=== PATIENT | female | born 1955 | race Two or more races ===

== ENCOUNTER 2020-11-27 12:41 | Inpatient (IN) | payer MEDICARE ==
[~2020-11-27] VITALS: Ht 160 cm; Wt 117.0 kg
[2020-11-27 13:20] LABS: BASOPHILS # (AUTO) 0.1 /CMM (0.0-0.2); LYMPHOCYTES # (AUTO) 0.7 /CMM (0.8-4.8); WHITE BLOOD COUNT (AUTO) 13.3 K/uL (4.3-11.0)
[2020-11-27 13:22] LABS: BASOPHILS % (AUTO) 0.9 % (0.0-2.0); HEMATOCRIT 44 % (33-45); HEMOGLOBIN 13.8 g/dL (11.5-14.8); LYMPHOCYTES % (AUTO) 5.5 % (20.0-44.0); MEAN CORPUSCULAR HGB CONC 32 g/dl (31.0-36.0); MEAN CORPUSCULAR VOLUME 90 fL (82-100); MONOCYTES # (AUTO) 0.9 /CMM (0.1-1.30); MONOCYTES % (AUTO) 6.7 % (2.0-12.0); NEUTROPHILS # (AUTO) 11.5 /CMM (1.8-8.9); NEUTROPHILS % (AUTO) 86.9 % (43.0-81.0); PLATELET COUNT (AUTO) 439 /CMM (150-450); RED BLOOD CELL COUNT(AUTO) 4.82 MIL/uL (4.0-5.2)
--- NOTE | 2020-11-27 13:22 | NUR ---
BHUPINDER FROM HOME TO ER BED 8. AAOX4. IN MOD RESP DISTRESS, SOB, DYSPNEI AND TACYPNEIC. BROUGHT IN FOR SOB WORSENING IN THE PAST 2 DAYS WORST TODAY. PER PT, SHE HAS BEEN HAVING THIS SOB FOR THE PAST MONTH. SHE REPORTS THAT WHEN THIS HAPPENS IT MEANS THAT SHE HAVE FLUIDS IN HER LUNGS, RECIEVED 2 ROUND OF THORACENTESIS. PT ALSO REPORTS THAT SHE HAVE AN ADVANCED STAGE LUNG CANCER. PT IS NOTED DYSPNEIC, SATTING 80-83% VIA NC @ 4LPM, SATTING AT 90% WHEN PLACED ON O2 VIA SIMPLE MASK PT IS ALSO NOTED TACHYCARDIC @ 138. BILAT LOWER EXT EDEMA +3 NOTED WELL. WAS AT TH BEDSIDE FOR EVAL. ORDERS RECEIVED, NOTED AND CARRIED OUT. IV LINE ESTABLISHED ON RFA 20G, BLOOD DRAWNA NDGIVEN TO PHLEB. PT ON MONITOR.
[2020-11-27] MEDS ORDERED: MAGN400T26 PO (13:34)
[2020-11-27] MEDS ORDERED: HYDR-4077 PO (13:34)
[2020-11-27] MEDS ORDERED: FOLI0.4T6 PO (13:34)
[2020-11-27] MEDS ORDERED: METO50TA16 PO (13:34)
[2020-11-27] MEDS ORDERED: BUDE10.26 INH (13:34)
[2020-11-27] MEDS ORDERED: [UNRECOGNIZED DRUG - REMARK] IV (13:34)
[2020-11-27] MEDS ORDERED: AMLO-212 PO (13:34)
[2020-11-27 13:43] LABS: ALANINE AMINOTRANSFERASE 95 U/L (12-78); ALBUMIN 2.8 g/dL (3.4-5.0); ALKALINE PHOSPHATASE 355 U/L (46-116); ASPARTATE AMINOTRANSFERASE 79 U/L (15-37); B-TYPE NATRIURETIC PEPTIDE 2476 PG/ML (0-125); BILIRUBIN,DIRECT 0.2 mg/dL (0.0-0.2); BILIRUBIN,TOTAL 0.4 mg/dL (0.2-1.0); CALCIUM, SERUM 11.3 mg/dL (8.5-10.1); CARBON DIOXIDE 25 mmol/L (21-32); CHLORIDE 108 mmol/L (98-107); CREATININE 0.9 mg/dL (0.6-1.3); GLUCOSE 182 mg/dL (74-106); POTASSIUM 3.6 mmol/L (3.5-5.1); SODIUM SERUM 144 mmol/L (136-145); TOTAL PROTEIN, SERUM 7.2 g/dL (6.4-8.2); UREA NITROGEN, BLOOD 18 mg/dL (7-18)
[2020-11-27 13:46] LABS: D-DIMER 12.1 mg/L(FEU (0.17-0.50)
[2020-11-27] MEDS ORDERED: IV NS 0.9% 1,000 ML BAG IV ONE (14:00)
[2020-11-27] MEDS ORDERED: LEVOFLOXACIN 750 MG /D5W 150ML 150 ML IV ONE ×2 (14:00→14:37)
[2020-11-27] MEDS ORDERED: CT SWABBABLE VALVE TRANS SET 1 EA INFUS.SET MC ONE (14:07)
[2020-11-27] MEDS ORDERED: IOHEXOL-350 100 ML VIAL IV ONE (14:07)
[2020-11-27] MEDS ORDERED: IV NS 0.9% 250 ML IV ONE (14:07)
--- NOTE | 2020-11-27 14:23 | NUR ---
PT REFUSED TO HAVE THE PULMONARY AGIOGRAM DESPITE EXPLAINING THE IMPORTANCE OF THE PROCEDURE. PT VERBALIZES THAT IT IS HARD FOR HER TO LIE DOWN FOR THE TEST. MADE AWARE.
[2020-11-27 14:28] LABS: ABG BASE EXCESS 0.5 mmol/L; ABG OXYGEN SATURATION 92.1 % (92.0-98.5); ABG PCO2 46.4 mmHg (35.0-45.0); ABG PH 7.371 (7.350-7.450); ABG PO2 70.6 mmHg (75.0-100.0); AaDO2 306.2 mmHg; COHb 0.3 % (0.5-1.5); MetHb 0.4 % (0.0-1.5); O2Hb 91.5 % (94.0-97.0); SITE, ABG Right Radial
[2020-11-27] MEDS ORDERED: ENOXAPARIN SODIUM 100 MG/ML DISP.SYRIN SQ ONE ×2 (14:30→15:00)
[2020-11-27] MEDS ORDERED: ASPIRIN 81 MG TAB.CHEW PO ONE (14:30)
--- NOTE | 2020-11-27 14:30 | NUR ---
consent signed by pt for theratupic ultrasound guided thoracentesis
--- NOTE | 2020-11-27 14:44 | NUR ---
LOVENOX AND ASA WILL BE GIVEN AFTER THORACENTESIS
--- NOTE | 2020-11-27 14:50 | NUR ---
DR. THAKKAR UPGRADED TO ICU.
--- NOTE | 2020-11-27 14:51 | NUR ---
received a call from the lab regarding covid 19 result "negative", notified.
--- NOTE | 2020-11-27 14:58 | NUR ---
THORACENTESIS DONE AT BEDSIDE BY INTERVENTIONAL RADIOLOGY, DR. LIPSCOMB. COLLECTED 500ML OF PLEURAL FLUIDS.
[2020-11-27] MEDS ORDERED: ACETAMINOPHEN 325 MG TABLET PO PRN (15:00)
[2020-11-27] MEDS ORDERED: MAGNESIUM HYDROXIDE 30 ML UDC PO PRN (15:00)
[2020-11-27] MEDS ORDERED: MAG HYDROX/AL HYDROX/SIMETH 30 ML UDC PO PRN (15:00)
[2020-11-27] MEDS ORDERED: ASPIRIN 81 MG TAB.CHEW ONE (15:00)
[2020-11-27] MEDS ORDERED: Z GUARD REMEDY 2 OZ OINT TP PRN (15:00)
[2020-11-27] MEDS ORDERED: MEROPENEM 500 MG in IV NS 0.9% 50 ML IV SCH (15:00)
[2020-11-27] MEDS ORDERED: ONDANSETRON HCL/PF 4 MG/2 ML VIAL IVP PRN (15:00)
--- NOTE | 2020-11-27 16:04 | NUR ---
REPORT GIVEN TO KIM OCONNELL FOR VERENA
--- NOTE | 2020-11-27 16:24 | NUR ---
PT TRANSPORTED TO [facility] WITH EMT AND RN AT BEDSIDE W/ ACLS PROTOCOL. NAD NOTED DURING TRANSPORT.
[2020-11-27] MEDS ORDERED: ENOXAPARIN SODIUM 100 MG/ML DISP.SYRIN SQ SCH (16:30)
--- NOTE | 2020-11-27 16:53 | NUR ---
RECEIVED REPORT FROM KIM JORGENSEN. PATIENT IN BED. PATIENT REPORTS SOB, ESPECIALLY ON EXERTION. PATIENT ALERT & ORIENTED X4. PATIENT ON SIMPLE MASK 10L OXYGEN, SATURATING WELL AT 95%. PATIENT ON [employer], ST NOTED WITH HEART RATE IN 110S. PATIENT RFA IV ACCESS INTACT, PATENT. WILL START SECOND IV LINE. PATIENT SAFETY MEASURES MAINTAINED. CALL LIGHT WITHIN REACH. WILL CONTINUE TO MONITOR. PATIENT VS 98.7 TEMP, 112 HR, 134/75 BP, 95% O2 SATURATION, 24 RR PATIENT CRITICAL VALUES TROPONIN 0.450, LACTIC ACID 2.[address] FORD. NO NEW ORDERS Addendum: 11/27/20 at 1654 by ANISH KIRKLAND RN RECEIVED REPORT FROM KIM HDZ. NOT KIM JORGENSEN
[2020-11-27] MEDS: FUROSEMIDE 40 MG/4 ML VIAL IV SCH (17:40)
[2020-11-27] MEDS: hydrALAZINE HCL 50 MG TABLET PO SCH (17:41)
[2020-11-27] MEDS: VANCOMYCIN 1.25 GM in IV D5W 250 ML IV SCH (17:42)
[2020-11-27] MEDS: MEROPENEM 1 G in IV NS 0.9% 100 ML IV SCH (17:44)
[2020-11-27 18:00] VITALS: BP 115/82
--- NOTE | 2020-11-27 18:30 | NUR ---
PATIENT IN BED. PATIENT REPORTS SOB, ESPECIALLY ON EXERTION. PATIENT ALERT & ORIENTED X4. PATIENT ON SIMPLE MASK 10L OXYGEN, SATURATING WELL AT 95%. PATIENT ON MEASUREMENT TECHNICIAN, ST NOTED WITH HEART RATE IN 110S. PATIENT RFA IV ACCESS INTACT, PATENT. WILL START SECOND IV LINE. PATIENT SAFETY MEASURES MAINTAINED. CALL LIGHT WITHIN REACH. WILL ENDORSE PLAN OF CARE TO ONCOMING SHIFT
[2020-11-27 19:03] VITALS: BP 126/63
--- NOTE | 2020-11-27 19:10 | NUR ---
ADHESIVE BANDAGE MACHINE OPERATOR NOTE RECEIVED PATIENT SITTING IN BED ALERT ORIENTED X4 VERBALLY RESPONSIVE ON 10L OXYGEN REGULAR MASK, O2:90% IV SITE IS ON RIGHT AC INTACT PATENT AMBULATORY WITH ASSIST,CONTINENT BOWEL/BLADDER, USING BED SIDE COMMODE,SAFETY MEASURE IMPLEMENT,CALL LIGHT WITHIN REACH,BED IN LOW POSITION AND LOCKED CONTINUE TO MONITOR.
--- NOTE | 2020-11-27 19:11 | NUR ---
CLIENT SERVICE COORDINATOR NOTE PT IS ON 11L OXYGEN VIA MASK O2:90 CONTINUE TO MONITOR.
[2020-11-27 20:00] VITALS: BP 122/107
[2020-11-27] MEDS: CALCITONIN,SALMON,SYNTHETIC 3.7 ML SPRAY.PUMP NS SCH (20:26)
[2020-11-27 21:00] VITALS: BP 128/70
[2020-11-27 22:00] VITALS: BP 135/83
[2020-11-27] MEDS: ENOXAPARIN SODIUM 100 MG/ML DISP.SYRIN SQ SCH (22:00)
--- NOTE | 2020-11-27 22:21 | NUR ---
GRAPHOTYPE OPERATOR NOTE PATIENT HAS PROCEDURE TOMORROW FOR RIGHT PLEURX CATHETER PLACEMENT CALLED DR SALGUERO HE ORDERED HOLD LOVENOX AT 22:00 NOTED AND CARRIED OUT.
[2020-11-27 23:00] VITALS: BP 130/77
[2020-11-28] VITALS (34 sets, daily range): BP systolic 80–177; BP diastolic 45–94
[2020-11-28] MEDS: MEROPENEM 1 G in IV NS 0.9% 100 ML IV SCH ×3 (04:05→20:34)
[2020-11-28 04:24] LABS: BASOPHILS # (AUTO) 0.1 /CMM (0.0-0.2); BASOPHILS % (AUTO) 0.5 % (0.0-2.0); EOSINOPHILS % (AUTO) 0.1 % (0.0-6.0); HEMATOCRIT 42 % (33-45); HEMOGLOBIN 13.3 g/dL (11.5-14.8); LYMPHOCYTES # (AUTO) 0.9 /CMM (0.8-4.8); LYMPHOCYTES % (AUTO) 6.8 % (20.0-44.0); MEAN CORPUSCULAR HGB CONC 32 g/dl (31.0-36.0); MEAN CORPUSCULAR VOLUME 89 fL (82-100); MONOCYTES # (AUTO) 1.3 /CMM (0.1-1.30); MONOCYTES % (AUTO) 9.7 % (2.0-12.0); NEUTROPHILS # (AUTO) 11.3 /CMM (1.8-8.9); NEUTROPHILS % (AUTO) 82.9 % (43.0-81.0); PLATELET COUNT (AUTO) 404 /CMM (150-450); WHITE BLOOD COUNT (AUTO) 13.6 K/uL (4.3-11.0)
[2020-11-28 04:46] LABS: ALBUMIN 2.5 g/dL (3.4-5.0); BILIRUBIN,TOTAL 0.4 mg/dL (0.2-1.0); CALCIUM, SERUM 10.7 mg/dL (8.5-10.1); CREATININE 0.8 mg/dL (0.6-1.3); MAGNESIUM 1.8 mg/dL (1.8-2.4); PHOSPHORUS 2.3 mg/dL (2.5-4.9); POTASSIUM 4.1 mmol/L (3.5-5.1); TOTAL PROTEIN, SERUM 6.7 g/dL (6.4-8.2)
--- NOTE | 2020-11-28 07:10 | NUR ---
MATHEMATICS DEPARTMENT CHAIR CLOSING NOTE PATIENT REMAINS ON ALERT ORIENTED X4 VERBALLY RESPONSIVE ON 11L OXYGEN VIA REGULAR MASK O2;90% IV SITE IS ON RIGHT FOREARM INTACT PATENT PT IS NPO ALL IV MEDS GIVEN,KEPT CLEAN AND DRY ALL THE TIME,KEPT CALL LIGHT WITHIN REACH,ENDORSE NEXT COMING SHIFT FOR CONTINUATION OF CARE.
--- NOTE | 2020-11-28 07:30 | NUR ---
OPENING NOTE RECEIVED PATIENT SITTING IN BED ALERT ORIENTED X4 VERBALLY RESPONSIVE ON 10L OXYGEN REGULAR MASK, O2:90% IV SITE IS ON RIGHT AC INTACT PATENT AMBULATORY WITH ASSIST,CONTINENT BOWEL/BLADDER, USING BED SIDE COMMODE,SAFETY MEASURE IMPLEMENT,CALL LIGHT WITHIN REACH,BED IN LOW POSITION AND LOCKED CONTINUE TO MONITOR AND PROVIDE TREATMENT
[2020-11-28 07:59] LABS: ABG BASE EXCESS 0.2 mmol/L; ABG OXYGEN SATURATION 94.9 % (92.0-98.5); ABG PCO2 49.4 mmHg (35.0-45.0); ABG PH 7.347 (7.350-7.450); ABG PO2 78.6 mmHg (75.0-100.0); AaDO2 331.1 mmHg; COHb 0.2 % (0.5-1.5); MetHb 0.2 % (0.0-1.5); O2Hb 94.5 % (94.0-97.0); SITE, ABG Right Radial; VENT MODE, BG 10L S/M
[2020-11-28] MEDS: ENOXAPARIN SODIUM 100 MG/ML DISP.SYRIN SQ SCH ×2 (08:28→21:00)
--- NOTE | 2020-11-28 08:46 | NUR ---
transport went to hand picker pt at approx 0840, pt stated that she was to anxious and did not want to proceed. nurse was notified to inform ordering MD. She stated that she would.
[2020-11-28] MEDS ORDERED: ENOXAPARIN SODIUM 100 MG/ML DISP.SYRIN SQ SCH (09:00)
--- NOTE | 2020-11-28 09:00 | NUR ---
LOVENOX HELD DUE TO PROCEDURE ORDERED.
[2020-11-28] MEDS: METOPROLOL TARTRATE 50 MG TABLET PO SCH (09:18)
[2020-11-28] MEDS: hydrALAZINE HCL 50 MG TABLET PO SCH ×2 (09:19→16:19)
[2020-11-28] MEDS: MAGNESIUM OXIDE 400 MG TABLET PO SCH (09:19)
[2020-11-28] MEDS: AMLODIPINE BESYLATE 5 MG TABLET PO SCH (09:19)
[2020-11-28] MEDS: FUROSEMIDE 40 MG/4 ML VIAL IV SCH ×2 (09:19→17:00)
[2020-11-28] MEDS: PANTOPRAZOLE 40 MG VIAL IV SCH (09:20)
[2020-11-28] MEDS: CALCITONIN,SALMON,SYNTHETIC 3.7 ML SPRAY.PUMP NS SCH (09:21)
--- NOTE | 2020-11-28 11:47 | NUR ---
THORACENTESIS DONE BY DR. ESCOBAR. 1010 ML OUT. X-RAY NOTIFIED TO DO FOLLOW UP CHEST X-RAY. BLOOD PRESSURE 85/45 HR 89 O2 SAT 96% RR 25. WILL CONTINUE TO MONITOR PATIENT.
[2020-11-28] MEDS ORDERED: K PHOS NEUTRAL 250 MG TABLET PO ONE (12:00)
--- NOTE | 2020-11-28 12:00 | NUR ---
BLOOD PRESSURE 108/72, HR 76
[2020-11-28] MEDS: VANCOMYCIN 1.25 GM in IV D5W 250 ML IV SCH (12:02)
--- NOTE | 2020-11-28 12:48 | NUR ---
PLEURAL FLUID TAKEN TO LAB.
[2020-11-28] MEDS ORDERED: AZITHROMYCIN 250 MG TABLET PO SCH (13:00)
--- NOTE | 2020-11-28 19:03 | NUR ---
PATIENT REPORTED THAT SHE SPOKE TO HER PRIMARY CARE PHYSICIAN, DR. SYDNEY MENEZES. PATIENT AND HER PRIMARY CARE PHYSICIAN IS REQUESTING THAT THE PATIENT BE TRANSFERRED TO [facility] FOR CONTINUATION OF CARE, THAT IS WHERE ALL HER NORMAL DOCTORS ARE LOCATED. SPOKE TO CASE MANAGMENT OFFICE, WILL FOLLOW UP IN AM. DR. SYDNEY MENEZES -
[2020-11-28] MEDS ORDERED: DOXYCYCLINE HYCLATE (100 MG) 100 MG TABLET PO SCH (19:30)
--- NOTE | 2020-11-28 19:48 | NUR ---
RN OPENING NOTE RECEIVED PT IN BED, ALERT AND ORIENTED X 4. ON O2 VIA SIMPLE MASK AT 10LPM, DENIES ANY SOB. NO DISTRESS NOTED. PT ON HIGH FOWLERS. DENIES ANY PAIN AT THIS TIME. PT WITH RFA IV, PATENT AND INTACT. NO SIGNS OF INFECTION NOTED. ALL SAFETY MEASURES IMPLEMENTED PER PROTOCOL. CALL LIGHT WITHIN REACH, BED LOCKED IN LOWEST POSITION. SIDE RAILS UP X 2.
[2020-11-28] MEDS: DOXYCYCLINE HYCLATE (100 MG) 100 MG TABLET PO SCH (20:34)
--- NOTE | 2020-11-28 23:00 | NUR ---
RN NOTE PATIENT FOR R PLEURX IN AM. PT DID NOT SIGN CONSENT, WANTS TO BE TRANSFERRED TO [facility] IN AM. SPOKE TO DR. ZEE, INFORMED.
[2020-11-28] MEDS: SYMBICORT 160/4.5 INH SCH (23:43)
[2020-11-29] VITALS (17 sets, daily range): BP systolic 84–126; BP diastolic 48–83
--- NOTE | 2020-11-29 00:30 | NUR ---
RN NOTE PTS IV ON RFA GOT INFILTRATED. NEW IV LINE INSERTED BY CHARGE NURSE.
[2020-11-29] MEDS: VANCOMYCIN 1.25 GM in IV D5W 250 ML IV SCH (04:27)
[2020-11-29 04:45] LABS: BASOPHILS # (AUTO) 0.1 /CMM (0.0-0.2); BASOPHILS % (AUTO) 0.6 % (0.0-2.0); EOSINOPHILS % (AUTO) 0.6 % (0.0-6.0); HEMATOCRIT 40 % (33-45); HEMOGLOBIN 12.6 g/dL (11.5-14.8); LYMPHOCYTES # (AUTO) 0.8 /CMM (0.8-4.8); LYMPHOCYTES % (AUTO) 7.5 % (20.0-44.0); MEAN CORPUSCULAR HGB CONC 31 g/dl (31.0-36.0); MEAN CORPUSCULAR VOLUME 90 fL (82-100); MONOCYTES # (AUTO) 1.4 /CMM (0.1-1.30); MONOCYTES % (AUTO) 12.3 % (2.0-12.0); NEUTROPHILS # (AUTO) 8.9 /CMM (1.8-8.9); PLATELET COUNT (AUTO) 337 /CMM (150-450); RED BLOOD CELL COUNT(AUTO) 4.47 MIL/uL (4.0-5.2); WHITE BLOOD COUNT (AUTO) 11.2 K/uL (4.3-11.0)
[2020-11-29 05:02] LABS: MAGNESIUM 1.7 mg/dL (1.8-2.4); PHOSPHORUS 2.8 mg/dL (2.5-4.9); POTASSIUM 3.5 mmol/L (3.5-5.1)
[2020-11-29] MEDS: MEROPENEM 1 G in IV NS 0.9% 100 ML IV SCH ×3 (05:50→21:00)
--- NOTE | 2020-11-29 06:43 | NUR ---
RN NOTES PT IN BED, SLEEPING, AROUSES EASILY. PT STILL DID NOT CONSENT FOR R. PLEURX CATHETER PLACEMENT. PT TOLERATING 10L O2 VIA SIMPLE MASK. NO RESP DISTRESS NOTED. PT DENIES SOB. CONTINUE ON TELE MONITORING SHOWS SINUS RHYTHM WITH HR OF 85. IV REMAIN INTACT AND PATENT. ALL DUE IV ATBS GIVEN ORDERED. REMAIN AFEBRILE. ALL SAFETY MEASURES MAINTAINED. CALL LIGHT WITHIN REACH AT ALL TIMES. WILL ENDORSE TO NEXT SHIFT NURSE FOR VERENA.
--- NOTE | 2020-11-29 07:30 | NUR ---
RN OPENING NOTE RECEIVED PT IN BED, ALERT AND ORIENTED X 4. ON O2 VIA SIMPLE MASK AT 10LPM, DENIES ANY SOB. NO DISTRESS NOTED. PT ON HIGH FOWLERS. DENIES ANY PAIN AT THIS TIME. PT WITH RFA IV, PATENT AND INTACT. NO SIGNS OF INFECTION NOTED. ALL SAFETY MEASURES IMPLEMENTED PER PROTOCOL. CALL LIGHT WITHIN REACH, BED LOCKED IN LOWEST POSITION. SIDE RAILS UP X 2 WILL CONTINUE TO MONITOR AND PROVIDE TREATMENT.
[2020-11-29] MEDS: AMLODIPINE BESYLATE 5 MG TABLET PO SCH (09:00)
[2020-11-29] MEDS: hydrALAZINE HCL 50 MG TABLET PO SCH ×2 (09:00→17:00)
[2020-11-29] MEDS: ENOXAPARIN SODIUM 100 MG/ML DISP.SYRIN SQ SCH ×3 (09:00→21:00)
[2020-11-29] MEDS: CALCITONIN,SALMON,SYNTHETIC 3.7 ML SPRAY.PUMP NS SCH (09:13)
[2020-11-29] MEDS: FUROSEMIDE 40 MG/4 ML VIAL IV SCH ×2 (09:13→17:00)
[2020-11-29] MEDS: PANTOPRAZOLE 40 MG VIAL IV SCH (09:13)
[2020-11-29] MEDS: METOPROLOL TARTRATE 50 MG TABLET PO SCH (09:14)
[2020-11-29] MEDS: MAGNESIUM OXIDE 400 MG TABLET PO SCH (09:14)
[2020-11-29] MEDS: DOXYCYCLINE HYCLATE (100 MG) 100 MG TABLET PO SCH ×2 (09:14→21:00)
[2020-11-29] MEDS ORDERED: Magnesium 1GM/D5W 100ML PREMIX 100 ML IV SCH (10:00)
[2020-11-29] MEDS ORDERED: MAGNESIUM OXIDE 400 MG TABLET PO ONE (12:00)
[2020-11-29] MEDS: SYMBICORT 160/4.5 INH SCH (12:32)
--- NOTE | 2020-11-29 16:12 | NUR ---
RECEIVED PT IN BED, ALERT AND ORIENTED X 4. ON O2 VIA SIMPLE MASK AT 10LPM, DENIES ANY SOB. NO DISTRESS NOTED. PT ON HIGH FOWLERS. DENIES ANY PAIN AT THIS TIME. PT WITH RFA IV, PATENT AND INTACT. NO SIGNS OF INFECTION NOTED. ALL SAFETY MEASURES IMPLEMENTED PER PROTOCOL. CALL LIGHT WITHIN REACH, BED LOCKED IN LOWEST POSITION, SIDE RAILS UP X 2. PATIENT TRANSFERRED TO [facility] FOR CONTINUATION OF CARE. BELONGINGS AND REPORT GIVEN TO KASI.
--- NOTE | 2020-11-29 16:15 | NUR ---
MS ADMISSION NOTES PATIENT TRANSFERRED FROM ICU, REPORT GIVEN BY KIM SARAH. PATIENT ALERT AND ORIENTED X 4, NO ACUTE DISTRESS NOTED. BREATHING UNLABORED, NO SOB NOTED, ON 10 L PM VIA MASK, SATURATING AT 99%, VITAL SIGNS STABLE. SINUS RHYTHM ON TELE. WILL CONTINUE TO MONITOR
--- NOTE | 2020-11-29 18:00 | NUR ---
MS RN NOTE HELD LASIX AND HYDRALAZINE DUE TO DECREASED BLOOD PRESSURE. MD ATKINSON NOTIFIED, NO NEW ORDERS AT THIS TIME. WILL CONTINUE TO MONITOR
--- NOTE | 2020-11-29 19:00 | NUR ---
MS CLOSING NOTE PATIENT RESTING IN BED, ALERT AND ORIENTED X 4. NO ACUTE DISTRESS OR SHORTNESS OF BREATH NOTED. PATIENT ON 10 L OXYGEN VIA MASK AND TOLERATING WELL. SAFETY MEASURES IN PLACE, BED IN LOWEST POSITION, CALL LIGHT WITHIN REACH AND BED ALARM ON. PATIENT FOR TRANSFER TO [facility]. WILL ENDORSE TO VIDEO GAME SCRIPT WRITER NURSE FOR CONTINUITY OF CARE AND DISCHARGE FOR TRANSFER.
--- NOTE | 2020-11-29 20:45 | NUR ---
RN NOTES PATIENT RESTING IN BED, ALERT AND ORIENTED X 4. NO ACUTE DISTRESS OR SHORTNESS OF BREATH NOTED. PATIENT ON 10 L OXYGEN VIA MASK AND TOLERATING WELL. SAFETY MEASURES IN PLACE, BED IN LOWEST POSITION, CALL LIGHT WITHIN REACH AND BED ALARM ON. PATIENT FOR TRANSFER TO [facility].WILL CONTINUE TO TO MONITOR.
--- NOTE | 2020-11-29 22:15 | NUR ---
RN NOTES PT TRANSFERRED TO [facility] VIA AMBULANCE ACCOMPANIED BY 3 SORTER LAUNDRY ARTICLES PT IN STABLE CONDITION. NO PAIN NO DISCOMFORT NOTED OR REPORTED AT THIS TIME. PT SIGNS ALL PAPERWORK.
[2020-11-30] MEDS ORDERED: PANTOPRAZOLE 40 MG TABLET.DR PO SCH (07:30)
== END 2020-11-29 22:10 | disposition short-term general hospital (02) | DRG 180 ==
LOC: ER 12:45 → ICU 15:55 → TELE 11-29 15:46
PROVIDERS: ADMIT Internal Medicine; ATTEND Nurse Practitioner Acute Care
PROC: 0W993ZZ Drainage of Right Pleural Cavity, Percutaneous Approach (ICD-10-PCS; principal; 2020-11-27)
PROC: 0W993ZZ Drainage of Right Pleural Cavity, Percutaneous Approach (ICD-10-PCS; 2020-11-28)
DX: C34.90 Malignant neoplasm of unspecified part of unspecified bronchus or lung (principal); J18.9 Pneumonia, unspecified organism; J96.01 Acute respiratory failure with hypoxia; I21.A1 Myocardial infarction type 2; J91.0 Malignant pleural effusion; Z68.42 Body mass index [BMI] 45.0-49.9, adult; E87.2 Acidosis; D63.8 Anemia in other chronic diseases classified elsewhere; E66.01 Morbid (severe) obesity due to excess calories; E83.39 Other disorders of phosphorus metabolism; E83.41 Hypermagnesemia; E83.52 Hypercalcemia; E88.09 Other disorders of plasma-protein metabolism, not elsewhere classified; I10 Essential (primary) hypertension; I25.10 Atherosclerotic heart disease of native coronary artery without angina pectoris; Z82.49 Family history of ischemic heart disease and other diseases of the circulatory system; Z20.822 Contact with and (suspected) exposure to COVID-19; R74.01 Elevation of levels of liver transaminase levels; G47.33 Obstructive sleep apnea (adult) (pediatric); Z92.21 Personal history of antineoplastic chemotherapy; Z90.710 Acquired absence of both cervix and uterus; Z83.3 Family history of diabetes mellitus
CPT/HCPCS: 36415; 36600; 71045-TC; 80048-TC; 80053-TC; 80076-TC; 82803-TC; 83605-TC; 83735-TC; 83880; 83970; 84100-TC; 84155-TC; 84484-TC; 85025-TC; 85378-TC; 85730-TC; 87040-TC; 87070-TC; 87075-TC; 87081-TC; 87102-TC; 88108-TC; 88305-TC; 88312-TC; 89051-TC; 93307-TC; 94799-TC; C9113; C9803; G0378; J1650; J1940; J1956; J2185; J3370; J7030; J7050; J7060; Q9967